=== PATIENT | male | born 1990 | race African-American/Black ===

== ENCOUNTER 2017-02-05 12:39 | Emergency (ER) | payer SELFPAY ==
[2017-02-05 11:51] LABS: BASOPHILS 0.1 %; BASOPHILS ABSOLUTE 0.01 10/3/uL (0.0-0.16); EOSINOPHILS 0 %; HEMOGLOBIN 14.8 g/dL (13.6-17.8); IMMATURE GRANULOCYTES 0.4 %; IMMATURE GRANULOCYTES ABSOLUTE 0.05 10/3/uL (0.0-0.11); LYMPHOCYTES 7.9 %; LYMPHOCYTES ABSOLUTE 1.06 10/3/uL (0.67-4.30); MEAN CORPUS HGB CONC 34.4 g/dL (32.0-36.0); MEAN CORPUSCULAR VOLUME 87.2 fL (80-100); MEAN PLATELET VOLUME 10.3 fL (9.2-13.0); MONOCYTES 7.7 %; MONOCYTES ABSOLUTE 1.03 10/3/uL (0.21-1.20); NEUTROPHILS 83.9 %; NEUTROPHILS ABSOLUTE 11.29 10/3/uL (2.02-8.40); PLATELET COUNT 175 10/3/uL (150-400); RBC DISTRIBUTION WIDTH 12.8 % (12.0-16.0); RED CELL COUNT 4.93 10/6/uL (4.7-6.1); WHITE BLOOD CELLS 13.4 10/3/uL (4.5-10.5)
[2017-02-05 11:53] LABS: MANUAL DIFF NO %
[2017-02-05 12:06] LABS: A/G RATIO 1.1 (0.7-1.9); ALBUMIN 3.5 G/DL (3.5-5.0); ALKALINE PHOSPHATASE 49 U/L (45-117); BUN (BLOOD UREA NITROGEN) 5 MG/DL (6-23); CALCIUM, SERUM 8.8 MG/DL (8.5-10.4); CHLORIDE, SERUM 105 MMOL/L (96-112); CO2 (CARBON DIOXIDE) 28 MMOL/L (24-34); CREATININE 1.15 MG/DL (0.70-1.30); GFR AFRICAN AMERICAN 103 ML/MIN (>=60); GFR NON AFRICAN AMERICAN 89 ML/MIN (>=60); GLOBULIN 3.3 G/DL (2.5-4.1); GLUCOSE, SERUM 95 MG/DL (60-99); POTASSIUM, SERUM 3.2 MMOL/L (3.5-5.3); SGOT(AST) 12 U/L (5-40); SGPT(ALT) 21 U/L (5-65); SODIUM, SERUM 140 MMOL/L (135-148); TOTAL BILIRUBIN 0.9 MG/DL (0-1.2); TOTAL PROTEIN 6.8 G/DL (6.0-8.5)
[2017-02-05 12:37] LABS: ASCORBIC ACID (UR NOT ORDER) NEG (NEG); BILIRUBIN, URINE NEGATIVE (NEG); ER URINALYSIS TAT 0 Hrs 08 Mins; KETONE, URINE NEGATIVE (NEG); LEUKOCYTE ESTERASE(NOT OR NEG (NEG); NITRITE (URINE) NEG (NEG); WBC (NOT ORDERED) (RFLEX) < 1 (0-5)
== END 2017-02-05 13:04 | disposition home or self-care (01) ==
LOC: ER 12:39
PROVIDERS: Nurse Practitioner
DX: R10.30 Lower abdominal pain, unspecified (principal); K21.9 Gastro-esophageal reflux disease without esophagitis; J45.909 Unspecified asthma, uncomplicated; F17.200 Nicotine dependence, unspecified, uncomplicated
CPT/HCPCS: 80053; 81001; 83690; 85025; 96374; 96375; 99284; A9270-GY; J1170; J2405